=== PATIENT | male | born 1995 | race Caucasian/White ===

== ENCOUNTER 2024-07-05 20:58 | Emergency (ER) | payer BC ==
[2024-07-05 22:56] VITALS: BP 126/85; PULSE 73
== END 2024-07-05 22:55 | disposition home or self-care (01) ==
LOC: JD.ED 20:58
DX: S69.91XA Unspecified injury of right wrist, hand and finger(s), initial encounter (principal); Z87.891 Personal history of nicotine dependence; W22.8XXA Striking against or struck by other objects, initial encounter
CPT/HCPCS: 73130-26-RT; 73130-RT; 99283